=== PATIENT | female | born 1985 | race Two or more races ===

== ENCOUNTER 2021-02-08 21:15 | Emergency (ER) | payer MEDICAID, OTHER ==
[~2021-02-08] VITALS: Ht 165.1 cm; Wt 64.9 kg
[2021-02-08 21:27] VITALS: BP 165/87
== END 2021-02-09 01:03 | disposition left against medical advice (07) ==
LOC: ER 21:15
DX: H57.12 Ocular pain, left eye (principal); Z53.21 Procedure and treatment not carried out due to patient leaving prior to being seen by health care provider